=== PATIENT | female | born 1985 | race Caucasian/White ===

== ENCOUNTER 2017-04-09 17:21 | Emergency (ER) | payer MEDICARE | END 2017-04-09 22:08 | disposition home or self-care (01) | LOC: ER 17:21 | DX: J06.9 Acute upper respiratory infection, unspecified (principal); R05 Cough; Z98.51 Tubal ligation status; F17.210 Nicotine dependence, cigarettes, uncomplicated; Z88.5 Allergy status to narcotic agent | CPT/HCPCS: 96372; 99282-25 ==